=== PATIENT | female | born 1960 | race Caucasian/White ===

== ENCOUNTER 2021-02-09 15:59 | Emergency (ER) | payer MEDICAID ==
[~2021-02-09] VITALS: Ht 157.5 cm; Wt 84.8 kg
[2021-02-09 16:12] VITALS: BP 104/84
[2021-02-09] MEDS ORDERED: JANUMET XR 50-1 EACH PO (16:17)
[2021-02-09] MEDS ORDERED: LANTUS SUBQ (16:17)
[2021-02-09] MEDS ORDERED: LYRICA25 MG PO (16:18)
[2021-02-09] MEDS ORDERED: TRULICITY0.75 MG/0. SUBQ (16:18)
[2021-02-09] MEDS ORDERED: CETIRIZINE HCL5 M1 PO (16:18)
[2021-02-09] MEDS ORDERED: LIPITOR 20 MG T20 M1 PO (16:18)
[2021-02-09] MEDS ORDERED: OMEPRAZOLE 20 M20 M1 PO (16:19)
[2021-02-09] MEDS ORDERED: VENTOLIN HFA 1818 GM INH (16:19)
[2021-02-09] MEDS ORDERED: DOXYCYCLINE 10100 MG PO (16:45)
[2021-02-09] MEDS ORDERED: CENTANY30 GM TOP (16:45)
== END 2021-02-09 17:07 | disposition home or self-care (01) ==
LOC: M.ERS 15:59
DX: L03.011 Cellulitis of right finger (principal); M79.601 Pain in right arm; M79.604 Pain in right leg; K21.9 Gastro-esophageal reflux disease without esophagitis; E11.40 Type 2 diabetes mellitus with diabetic neuropathy, unspecified; Z79.4 Long term (current) use of insulin; Z79.899 Other long term (current) drug therapy; Z88.8 Allergy status to other drugs, medicaments and biological substances

== ENCOUNTER 2021-04-23 11:33 | Emergency (ER) | payer MEDICAID ==
[~2021-04-23] VITALS: Ht 157.5 cm; Wt 84.8 kg
[~2021-04-23 11:33] MED LIST: CENTANY30 GM TOP; CETIRIZINE HCL5 M1 PO; DOXYCYCLINE 10100 MG PO; JANUMET XR 50-1 EACH PO; LANTUS SUBQ; LIPITOR 20 MG T20 M1 PO; LYRICA25 MG PO; OMEPRAZOLE 20 M20 M1 PO; TRULICITY0.75 MG/0. SUBQ; VENTOLIN HFA 1818 GM INH
[2021-04-23] MEDS ORDERED: CEPHALEXIN500 MG PO (13:36)
[2021-04-23] MEDS ORDERED: NORCO5 PO ×2 (13:36→13:43)
[2021-04-23 14:00] VITALS: BP 110/72
== END 2021-04-23 14:00 | disposition home or self-care (01) ==
LOC: M.ERS 11:33
DX: S62.633B Displaced fracture of distal phalanx of left middle finger, initial encounter for open fracture (principal); S61.313A Laceration without foreign body of left middle finger with damage to nail, initial encounter; K21.9 Gastro-esophageal reflux disease without esophagitis; E11.40 Type 2 diabetes mellitus with diabetic neuropathy, unspecified; Z98.51 Tubal ligation status; Z79.899 Other long term (current) drug therapy; Z88.6 Allergy status to analgesic agent; W23.0XXA Caught, crushed, jammed, or pinched between moving objects, initial encounter; Y93.89 Activity, other specified; Y92.89 Other specified places as the place of occurrence of the external cause; Y99.9 Unspecified external cause status

== ENCOUNTER 2021-05-10 22:10 | Emergency (ER) | payer MEDICAID ==
[~2021-05-10] VITALS: Ht 157.5 cm; Wt 81.7 kg
[~2021-05-10 22:10] MED LIST changes: +CEPHALEXIN500 MG PO; +NORCO5 PO
[2021-05-10 23:05] VITALS: BP 146/59
== END 2021-05-10 23:05 | disposition home or self-care (01) ==
LOC: M.ERS 22:10
DX: M79.645 Pain in left finger(s) (principal); E78.00 Pure hypercholesterolemia, unspecified; E11.9 Type 2 diabetes mellitus without complications; K21.9 Gastro-esophageal reflux disease without esophagitis; Z88.6 Allergy status to analgesic agent; Z79.899 Other long term (current) drug therapy; Z79.82 Long term (current) use of aspirin